=== PATIENT | female | born 1940 | race Caucasian/White ===

== ENCOUNTER 2016-08-14 15:58 | Emergency (ER) | payer OTHER ==
[~2016-08-14] VITALS: Ht 144.8 cm; Wt 97.1 kg
[~2016-08-14 15:58] MED LIST: CIPRO 500MG TA500 MG PO; DILAUDID2 MG PO; FLOMAX(MONOGRA0.4 MG PO; IBUPROFEN400 MG PO; LASIX20 MG PO; METFORMIN ER500 MG PO; PERCOCET 325 MG1 TA2 PO; PRINIVIL 5MG5 MG PO; TORADOL10 MG PO; TRAMADOL HYDROC50 MG PO; TRAVATAN Z50 GTT/1 B IO
--- NOTE | 2016-08-14 17:31 | ED GENERAL ADULT ---
History of Present Illness General Chief Complaint: Headache Stated Complaint: PT FELL HIT HER HEAD HAVING HEAD ACHE Source: patient Exam Limitations: no limitations Vital Signs & Intake/Output Vital Signs & Intake/Output Vital Signs Date Time Temp Pulse Resp B/P Pulse O2 O2 Flow FiO2 Ox Delivery Rate 08/14 1943 97.3 89 18 158/63 96 08/14 1810 100 Room Air 08/14 1740 72 18 176/81 96 Room Air 08/14 1604 97.4 80 16 169/83 98 Room Air Allergies Coded Allergies: NO KNOWN ALLERGIES (10/10/15) Reconcile Medications Ciprofloxacin (Cipro) 500 MG TABLET 1 TAB PO BID UTI Furosemide (Lasix) 20 MG TABLET 1 TAB PO DAILY HEART Lisinopril (Prinivil) 5 MG TABLET 20 MG PO DAILY HTN (Reported) Meclizine HCl 25 MG TABLET 1 TAB PO TIDPRN PRN VERTIGO Metformin Hydrochloride (Metformin ER) [address] 500 MG PO DAILY DIABETES ( Reported) OXYCODONE HCL/ACETAMINOPHEN (Percocet 5-325 MG Tablet) 325 MG/5 MG TAB 1 TAB PO Q4-6 PRN PRN PAIN Tamsulosin Hydrochloride (Flomax) 0.4 MG CAP.ER.24H 1 CAP PO DAILY STONE TRAMADOL HCL (Tramadol Hydrochloride) 50 MG TABLET 50 MG PO Q6 PRN pain ( Reported) Travoprost (Travatan Z Oph Pamela 0.004% 2.5ML) 0.004 % DROPS 1 DROP IO DAILY ANTI GLAUCOMA (Reported) Triage Note: PT HAS HAD LOTS OF HEADACHES FOR THE PAST FEW WEEKS. PER SON PT HAS FALLEN A FEW TIMES OVER THE PAST FEW WEEKS. PT STATES SHE FELL ON HER KNEES BUT SON FEELS SHE MAY HAVE HIT HER HEAD Triage Nurses Notes Reviewed? yes Onset: Gradual Duration: worse persistent since (1 WEEK, ON GOING X 1 YR) Timing: recent history Injury Environment: home Severity: moderate No Modifying Factors: none HPI: Patient is a 75-year-old female with history of hypertension, diabetes presenting to the emergency department a chief complaint of multiple falls over the past year. They have seen a primary care physician for this problem in the past and the primary care physician reports that they can no longer help this patient and that they should go to the emergency department for evaluation. Patient presents she has fallen multiple times, unwitnessed falls. The son reports that many times she has fallen and hit her head. Patient denies any loss of consciousness. Patient reports that she experiences weakness in the knees and the frontal throbbing headache. She reports that she gets dizzy with positional changes. She reports that her headache comes and goes. She also experiences ringing in the ears. Family denies getting any medications to help with symptoms. (ANUSHA MARADIAGA) Past History Travel History Traveled to [place] past 21 day No Medical History Any Pertinent Medical History? see below for history Cardiovascular: hypertension Gastrointestinal: GERD Endocrine: diabetes History of MRSA: No History of VRE: No History of CDIFF: No Influenza Vaccine: 04/08/12 Surgical History Surgical History: non-contributory Psychosocial History Who do you live with Family Services at Home None What is your primary language Other Tobacco Use: Never used ETOH Use: denies use Illicit Drug Use: denies illicit drug use Family History Family History, If Any: Relation not specified for: No significant family history Hx Contributory? No (ANUSHA MARADIAGA) Review of Systems Review of Systems Constitutional: Reports: weakness. Comments Review of systems: See HPI, All other systems negative. Constitutional, no chills fever or weight loss HEENT: No visual changes no sore throat no congestion Cardiovascular: No chest pain ,palpitation , orthopnea or ankle swelling Skin, no jaundice no rashes Respiratory: No dyspnea cough sputum or hemoptysis GI: No nausea no vomiting : No dysuria No hematuria Muscle skeletal: no back pain, no neck pain, Neurologic: No numbness no confusion Psych: No stress anxiety or depression,. Heme/endocrine: No bruising no bleeding no polyuria or polydipsia Immunology: No splenectomy or history of AIDS (ANUSHA MARADIAGA) Physical Exam Physical Exam General Appearance: well developed/nourished, no apparent distress, alert, awake , comfortable, obese Comments: Well-developed well-nourished person in no acute distress HEENT: extraocular motion intact, no nystagmus. Pupils equally round and reactive to light and accommodation. Nose is atraumatic. External auditory canal and Tympanic membranes clear. Pharynx normal. No swelling or edema. Patient gets dizzy when she sits up initially in bed. Neck: Supple, no lymphadenopathy, normal range of motion without pain or tenderness Back: Nontender, Cardiovascular: Regular rate and rhythms no murmurs rubs or gallops, normal JVP Respiratory: Chest nontender. No respiratory distress.breath sounds clear to auscultation bilaterally Abdomen: Soft, obese, nontender, no rebound or guarding, nondistended, no appreciable organomegaly. Normal bowel sounds. No ascites Extremity: Nonpitting edema bilaterally, no calf tenderness to palpation, normal and equal pulses. Muscular strength is 4 out of 5 in upper and lower extremities bilaterally. [employer] General Sales Manager strength is equal and symmetric bilaterally. Able to stand at bedside without support, no dizziness. Neuro: Alert oriented x3, motor sensory normal, cranial nerves II through XII grossly intact. Skin: No appreciable rash on exposed skin, skin is warm and dry. Psych: Mood and affect is normal, memory and judgment is normal. Core Measures ACS in differential dx? Yes CVA/TIA Diagnosis: No Severe Sepsis Present: No Septic Shock Present: No (ANUSHA MARADIAGA) Progress Differential Diagnoses I considered the following diagnoses in my evaluation of the patient: Dehydration, I'll actually abnormality, orthostatic hypotension, anemia, Mnire 's disease, vertigo Plan of Care: Orders Procedure Date/time Status MISTAKE 08/14 1729 Active Telemetry/Senior C Developer 08/14 1729 Active TROPONIN LEVEL 08/14 1729 Complete COMPREHENSIVE METABOLIC PANEL 08/14 1729 Complete CBC WITHOUT DIFFERENTIAL 08/14 1729 Complete EKG 08/14 1729 Active Laboratory Tests 08/14/16 1800: Anion Gap 11, Estimated GFR > 60, BUN/Creatinine Ratio 48.6 H, Glucose 100 H, Calcium 9.8, Total Bilirubin 0.5, AST 26, ALT 33, Alkaline Phosphatase 78, Troponin I < 0.01, Total Protein 7.0, Albumin 4.1, Globulin 2.9, Albumin/ Globulin Ratio 1.4, CBC w Diff NO MAN DIFF REQ, RBC 4.29, MCV 87.8, MCH 28.7, RDW 14.2, MPV 9.4, Gran % 65.6, Lymphocytes % 24.1, Monocytes % 7.6, Eosinophils % 2.5, Basophils % 0.2, Absolute Granulocytes 7.1 H, Absolute Lymphocytes 2.6, Absolute Monocytes 0.8 H, Absolute Eosinophils 0.3, Absolute Basophils 0, PUBS MCHC 32.7 L Diagnostic Imaging: Viewed by Me: Radiology Read. Discussed w/RAD: Radiology Read. Radiology Impression: PATIENT: JUAN MANUEL MONROE PRESENT AGE: 75 PATIENT ACCOUNT NO: [id number] : 40 LOCATION: [facility] ORDERING PHYSICIAN: ANUSHA KITCHEN SERVICE DATE: 08/14/16 EXAM TYPE: CAT - CT HEAD WO IV CONTRAST EXAMINATION: CT HEAD WITHOUT CONTRAST CLINICAL INFORMATION: Evaluate for acute intracranial hemorrhage. Frequent falls. COMPARISON: No relevant prior imaging is available. TECHNIQUE: Contiguous axial imaging was performed from the skull base to vertex without intravenous administration of contrast. DLP: 672.25 mGy-cm FINDINGS: There is no acute intracranial hemorrhage or abnormal extra-axial collection. No intracranial mass effect or midline shift. Lateral and third ventricles are proportionate to the subarachnoid spaces. No hydrocephalus. There are ill-defined foci of hypoattenuation throughout the periventricular white matter that most likely represent a chronic manifestation of small vessel ischemia. Joy-white matter differentiation is otherwise grossly preserved and there is no evidence of acute territorial infarct. The calvarium and skull base are intact. Mastoid air cells and middle ear cavities are well aerated. Visualized paranasal sinuses are well- aerated. Globes and orbits are symmetric. IMPRESSION: There are chronic small vessel ischemic changes throughout the periventricular white matter. No evidence of acute territorial infarct or hemorrhage. CXR Impression: PATIENT: JUAN MANUEL MONROE PRESENT AGE: 75 PATIENT ACCOUNT NO: [id number] : 40 LOCATION: [facility] ORDERING PHYSICIAN: ANUSHA KITCHEN SERVICE DATE: 08/14/16 EXAM TYPE: RAD - XRY- PORTABLE CHEST XRAY EXAMINATION: XR PORTABLE CHEST CLINICAL INFORMATION: Dizziness. Evaluate for cardiomegaly. COMPARISON: Chest x-ray 09/17/2015. TECHNIQUE: Portable AP view of the chest was obtained. FINDINGS: The lungs are hypoinflated, without focal airspace consolidation. No pleural effusions or pneumothoraces are identified. Cardiomediastinal contours are stable and there is stable mild prominence of the cardiac silhouette, without overt pulmonary edema. Soft tissues are unremarkable. No acute osseous abnormality is identified. IMPRESSION: No acute pulmonary process. Pulmonary hypoinflation and bronchial vascular crowding. Stable mild prominence of the cardiac silhouette, without overt pulmonary edema. DICTATED BY: KARUNA VIZCARRA,PACO Initial ED EKG: NSR (69 BPM) Comments: Patient is neurologically intact no focal deficits on exam. Symptoms have been going on and off for the past year. No formal diagnosis has been made. Patient informed of all imaging results and laboratory results. Patient feeling much better after meclizine. This is likely either veTIGO OR Mnire's disease with a associated tinnitus and headaches. Patient will follow up with ear nose and throat. Discussed with Dr. Wagner and he agrees with plan. Patient ambulatory in the emergency department without difficulty. (ANUSHA MARADIAGA) Departure Departure Time of Disposition: 1927 Disposition: HOME OR SELF CARE Condition: Stable Clinical Impression Primary Impression: Meniere disease Qualifiers: Laterality: unspecified laterality Qualified Code: H81.09 - Meniere 's disease, unspecified ear Secondary Impressions: Hypertension Qualifiers: Hypertension type: essential hypertension Qualified Code: I10 - Essential (primary) hypertension Referrals: NELLIE VIZCARRA,XOCHILT CHAN MD,JULIANNA (PCP/Family) Additional Instructions: Follow-up with ear nose and throat doctor call to make an appointment. Take meclizine as prescribed. Return for worsening symptoms or concerns. Follow-up with your primary care physician regarding blood pressure. Departure Forms: Customer Survey General Discharge Information Prescriptions: Current Visit Scripts Meclizine HCl 1 TAB PO TIDPRN PRN VERTIGO #30 TAB (ANUSHA MARADIAGA) PA/CROWN BLOCKER Co-Sign Statement Statement: ED Attending supervision documentation- x I saw and evaluated the patient. I have also reviewed all the pertinent lab results and diagnostic results. I agree with the findings and the plan of care as documented in the PA's/CROWN BLOCKER's documentation. [] I have reviewed the ED Record and agree with the PA's/CROWN BLOCKER's documentation. [] Additions or exceptions (if any) to the PAs/CROWN BLOCKER's note and plan are summarized below: [] (LESLIE VIZCARRA,RUSTAM) Critical Care Note Critical Care Note Critical Care Time: non-applicable (ANUSHA MARADIAGA)
[2016-08-14 18:28] LABS: ABSOLUTE BASOPHIL COUNT 0 /CUMM (0.0-0.2); ABSOLUTE EOSINOPHIL COUNT 0.3 /CUMM (0.0-0.7); ABSOLUTE GRANULOCYTE CT 7.1 /CUMM (1.4-6.5); ABSOLUTE LYMPH COUNT 2.6 /CUMM (1.2-3.4); ABSOLUTE MONOCYTE COUNT 0.8 /CUMM (0.10-0.60); BASOPHIL % 0.2 % (0.0-2.0); EOSINOPHIL % 2.5 % (0-5); GRANULOCYTE % 65.6 % (42.2-75.2); HEMATOCRIT 37.7 % (37-47); MEAN CORPUSCULAR HGB 28.7 PG (27.0-31.0); MEAN CORPUSCULAR HGB CONC 32.7 G/DL (33.0-37.0); MEAN CORPUSCULAR VOLUME 87.8 FL (81.0-99.0); MEAN PLATELET VOLUME 9.4 FL (7.4-10.4); PLATELET COUNT 242 /CUMM (130-400); RBC DISTRIBUTION WIDTH 14.2 % (11.5-14.5); RED BLOOD CELL CT 4.29 /CUMM (4.20-5.40); WHITE BLOOD CELL COUNT 10.8 /CUMM (4.8-10.8)
--- NOTE | 2016-08-14 18:36 | RADIOLOGY REPORT ---
EXAMINATION: XR PORTABLE CHEST CLINICAL INFORMATION: Dizziness. Evaluate for cardiomegaly. COMPARISON: Chest x-ray 09/17/2015. TECHNIQUE: Portable AP view of the chest was obtained. FINDINGS: The lungs are hypoinflated, without focal airspace consolidation. No pleural effusions or pneumothoraces are identified. Cardiomediastinal contours are stable and there is stable mild prominence of the cardiac silhouette, without overt pulmonary edema. Soft tissues are unremarkable. No acute osseous abnormality is identified. IMPRESSION: No acute pulmonary process. Pulmonary hypoinflation and bronchial vascular crowding. Stable mild prominence of the cardiac silhouette, without overt pulmonary edema.
--- NOTE | 2016-08-14 18:55 | CT SCAN REPORT ---
EXAMINATION: CT HEAD WITHOUT CONTRAST CLINICAL INFORMATION: Evaluate for acute intracranial hemorrhage. Frequent falls. COMPARISON: No relevant prior imaging is available. TECHNIQUE: Contiguous axial imaging was performed from the skull base to vertex without intravenous administration of contrast. DLP: 672.25 mGy-cm FINDINGS: There is no acute intracranial hemorrhage or abnormal extra-axial collection. No intracranial mass effect or midline shift. Lateral and third ventricles are proportionate to the subarachnoid spaces. No hydrocephalus. There are ill-defined foci of hypoattenuation throughout the periventricular white matter that most likely represent a chronic manifestation of small vessel ischemia. Joy-white matter differentiation is otherwise grossly preserved and there is no evidence of acute territorial infarct. The calvarium and skull base are intact. Mastoid air cells and middle ear cavities are well aerated. Visualized paranasal sinuses are well-aerated. Globes and orbits are symmetric. IMPRESSION: There are chronic small vessel ischemic changes throughout the periventricular white matter. No evidence of acute territorial infarct or hemorrhage.
[2016-08-14] MEDS ORDERED: MECLIZINE HCL25 MG PO (19:29)
[2016-08-14 19:43] VITALS: BP 158/63
== END 2016-08-14 19:45 ==
LOC: ERH 15:58
PROVIDERS: Physician Assistant
DX: H81.09 Meniere's disease, unspecified ear (principal); I10 Essential (primary) hypertension
CPT/HCPCS: 93005; 93010